=== PATIENT | male | born 1950 | race American Indian/Alaskan Native ===

== ENCOUNTER 2020-10-04 06:00 | Day surgery (SDC) | payer MEDICARE ==
[2020-10-04] MEDS: SODIUM CHLORIDE 0.9% 500 ML 500 ML IV SCH ×2 (07:51→08:55)
[2020-10-04] MEDS ORDERED: HEPARIN/NS 5000 UNIT/500ML 500 ML IR ONE ×2 (08:15→09:20)
[2020-10-04] MEDS ORDERED: HEPARIN 10,000 UNITS/10 ML VIAL ONE (08:15)
[2020-10-04] MEDS: fentaNYL 100 MCG/2 ML INJ ONE ×2 (08:51→08:59)
[2020-10-04] MEDS: MIDAZOLAM 2 MG/2 ML INJ ONE ×2 (08:51→08:59)
[2020-10-04] MEDS: LIDOCAINE (2%) 20 MG/1 ML VIAL 20 ML MDV INFILTRATI ONE ×2 (08:52→09:00)
[2020-10-04] MEDS ORDERED: SODIUM CHLORIDE 0.9% 0 ML ONE (09:17)
[2020-10-04] MEDS ORDERED: BIVALIRUDIN 250 MG INJ IV ONE (09:17)
--- NOTE | 2020-10-04 10:15 | Short Stay Summary ---
Short Stay Documentation Date of service: 10/04/20 - History H&P: obtained from office - Allergies and Medications Current Medications: Allergies No Known Allergies Allergy (Verified 10/04/20 07:02) Home Medications Medication Instructions Recorded Confirmed Last Taken Type Aspirin EC [Halfprin EC] 81 mg PO DAILY 10/04/20 10/04/20 10/03/20 History 81 mg Atorvastatin [Lipitor] 80 mg PO DAILY 10/04/20 10/04/20 10/03/20 History 80 mg Clopidogrel [Plavix] 75 mg PO DAILY 10/04/20 10/04/20 10/03/20 History 75 mg Ezetimibe [Zetia] 10 mg PO DAILY 10/04/20 10/04/20 10/03/20 History 10 mg amLODIPine 10 mg PO DAILY 10/04/20 10/04/20 10/03/20 History 10 mg carvediloL [Coreg] 12.5 mg PO BID 10/04/20 10/04/20 10/03/20 History 12.5mg Active Medications Sodium Chloride (Nacl 0.9% 500 Ml) 500 mls @ 50 mls/hr IV DIRECT YUNI Last Admin: 10/04/20 08:55 Dose: 50 mls/hr Documented by: - Physical exam Integumentary: other (clean, tegaderm in place, no bleeding or hematoma) - Brief post op/procedure progress note Pre-op diagnosis: claudication Post-op diagnosis: same Anesthesia: local Estimated blood loss: minimal - Disposition Condition at discharge: Good Disposition: DC-01 TO HOME OR SELFCARE - Discharge Diagnoses (1) Claudication Status: Acute Short Stay Discharge Plan Activity: advance as tolerated Diet: low fat, low cholesterol, low salt Wound: keep clean and dry, per your surgeon's advice Follow up with: PRIMARY CARE, [Primary Care Provider] - 7 Days CARLINE SAHA MD [Staff Physician] - 10/19/20 10:45 am (Follow up appointment with [facility], on 10/19/2020 at 10:30am at our [place] location. Phone )
--- NOTE | 2020-10-04 10:50 | Cardiac Catherization Report ---
DATE OF SERVICE: 10/04/2020 PROCEDURE: Peripheral angiogram. CLINICAL INFORMATION: A 70-year-old -[place] gentleman with claudication symptoms, has hypertension, hyperlipidemia, stopped smoking, had an ultrasound that showed distal right SFA disease and despite medical therapy, here for peripheral angiogram. Procedure was done with moderate sedation, started at 9:15, finished at 9:45, 30 minutes of moderate sedation. DESCRIPTION OF PROCEDURE: 1. Procedure was done via the left common femoral artery, sterile technique, local anesthesia, 5 -Belarusian groin sheath inserted. Pigtail catheter was placed in the distal peroneal, runoff was done, showed distal abdominal aorta patent, bilateral common iliacs patent, right internal and external iliac patent, left internal iliac proximal has a 50% lesion, internal has an ostial 60% lesion. Bilateral common femoral artery is patent. Left SFA proximally and distally is patent, popliteal patent with 2-vessel runoff with posterior tibial and peroneal, anterior tibial is 100%. 2. Left SFA proximal, mid, distal patent. Then, at the popliteal 100% with a genicular branch feeding into a peroneal branch with anterior tibial and posterior tibial both 100% and a distal peroneal branch becomes 100% with collateral feeding the anterior tibial. About 50-60 mm worth of occlusion noted with single vessel runoff. Next, pigtail was exchanged for for a RIM catheter using Advantage wire, placed the catheter down into the distal SFA, did angiogram with multiple angles, showed occlusion with genicular branch, flush occlusion, did not see a point of reentry proximally. Removed catheters over a guidewire and 5-Belarusian groin sheath was discontinued. Manual pressure held. No bleeding. SUMMARY OF FINDINGS: 1. Distal abdominal aorta patent, bilateral common iliacs patent, right internal and external iliac and ANIMATION CAMERA OPERATOR and profunda patent, left external iliac ostial 60%, left internal proximal 50% with ANIMATION CAMERA OPERATOR patent, left SFA patent with 2-vessel runoff with popliteal patent with peroneal and posterior tibial patent. 2. Right SFA proximal, mid, distal patent, but popliteal 100% with a genicular branch feeding a single vessel peroneal runoff. 3. The patient will be referred to Vascular Surgery for intervention for claudication symptoms. I discussed this with the patient and the patient's family in detail. TID: [id number] RECEIPT: [id number] KARON/BRIAN/ENRIQUE MTDD
[2020-10-04 13:36] VITALS: BP 160/76
== END 2020-10-04 14:34 | disposition home or self-care (01) ==
LOC: CATHLABREC 06:00
PROVIDERS: ATTEND Internal Medicine
DX: I73.89 Other specified peripheral vascular diseases (principal); I25.10 Atherosclerotic heart disease of native coronary artery without angina pectoris; I10 Essential (primary) hypertension; E78.49 Other hyperlipidemia; E78.00 Pure hypercholesterolemia, unspecified; Z87.891 Personal history of nicotine dependence; Z79.899 Other long term (current) drug therapy; Z98.890 Other specified postprocedural states
CPT/HCPCS: 36247; 75716; 99156; 99157; C1769; J1644; J2250; J3010; J7040; J0583; Q9967

== ENCOUNTER 2020-12-07 05:53 | Day surgery (SDC) | payer MEDICARE ==
[2020-12-07] MEDS ORDERED: SODIUM CHLORIDE 0.9% 500 ML 500 ML IV SCH (07:00)
[2020-12-07 07:16] LABS: Basophils % (Auto) 0.7 % (0.0-1.8); Eosinophils # (Auto) 0.2 K/mm3 (0.0-0.4); Eosinophils % (Auto) 3.6 % (0.0-4.3); Hematocrit 39.4 % (35.5-45.6); Hemoglobin 13.1 gm/dl (11.8-15.2); Lymphocytes # (Auto) 1.6 K/mm3 (1.2-5.4); Lymphocytes % (Auto) 23.9 % (13.4-35.0); Mean Corpuscular HGB Conc 33 % (32-34); Mean Corpuscular Volume 87 fl (84-94); Monocytes # (Auto) 0.6 K/mm3 (0.0-0.8); Monocytes % (Auto) 9.5 % (0.0-7.3); Platelet Count 215 K/mm3 (140-440); Red Blood Count 4.53 M/mm3 (3.65-5.03); Red Cell Distribution Width 14.8 % (13.2-15.2)
[2020-12-07 07:26] LABS: INR 1.1 (0.87-1.13)
[2020-12-07 07:28] LABS: BUN/Creatinine Ratio 13; Blood Urea Nitrogen 14 mg/dL (9-20); Calcium 8.9 mg/dL (8.4-10.2); Hemolysis Index 5
[2020-12-07] MEDS ORDERED: HEPARIN/NS 5000 UNIT/500ML 1,000 ML IR ONE (08:21)
[2020-12-07] MEDS ORDERED: HEPARIN 10,000 UNITS/10 ML VIAL ONE (08:21)
[2020-12-07] MEDS ORDERED: LIDOCAINE (2%) 20 MG/1 ML VIAL 20 ML MDV INFILTRATI ONE (08:21)
[2020-12-07] MEDS ORDERED: VERAPAMIL 5 MG/2 ML INJ ONE (08:21)
[2020-12-07] MEDS ORDERED: NITROGLYCERIN SYRINGE 3 ML ONE (08:23)
[2020-12-07] MEDS ORDERED: MIDAZOLAM 2 MG/2 ML INJ ONE (08:26)
[2020-12-07] MEDS ORDERED: fentaNYL 100 MCG/2 ML INJ ONE (08:26)
[2020-12-07] MEDS ORDERED: ceFAZolin/Water 2 GM/20 ML 2 GM/20 ML SYRINGE IV ONE (08:41)
[2020-12-07] MEDS ORDERED: ceFAZolin/STERILE WATER 2 GM/20 ML SYRINGE IV ONE (08:42)
[2020-12-07] MEDS ORDERED: MIDAZOLAM 2 MG/2 ML INJ IV ONE ×2 (09:01→09:51)
[2020-12-07] MEDS ORDERED: HEPARIN 10,000 UNITS/10 ML VIAL IV ONE (09:50)
[2020-12-07] MEDS ORDERED: fentaNYL 100 MCG/2 ML INJ IV ONE (09:51)
--- NOTE | 2020-12-07 11:25 | Short Stay Summary ---
Short Stay Documentation Date of service: 12/07/20 - History Principal diagnosis: Right PVD with rest pain H&P: obtained from office - Allergies and Medications Current Medications: Allergies No Known Allergies Allergy (Verified 10/04/20 07:02) Home Medications Medication Instructions Recorded Confirmed Last Taken Type Aspirin EC [Halfprin EC] 81 mg PO DAILY 10/04/20 12/07/20 12/07/20 06:00 History 81 MG Atorvastatin [Lipitor] 80 mg PO DAILY 10/04/20 12/07/20 12/07/20 06:00 History 80 MG Clopidogrel [Plavix] 75 mg PO DAILY 10/04/20 12/07/20 12/07/20 06:00 History 75 MG Ezetimibe [Zetia] 10 mg PO DAILY 10/04/20 12/07/20 12/07/20 06:00 History 10 MG amLODIPine 10 mg PO DAILY 10/04/20 12/07/20 12/07/20 06:00 History carvediloL [Coreg] 12.5 mg PO BID 10/04/20 12/07/20 12/07/20 06:00 History 2 TABS Active Medications Sodium Chloride (Nacl 0.9% 500 Ml) 500 mls @ 50 mls/hr IV DIRECT YUNI Last Admin: 12/07/20 08:23 Dose: 50 mls/hr Documented by: - Brief post op/procedure progress note Date of procedure: 12/07/20 Pre-op diagnosis: Right PVD with rest pain Post-op diagnosis: same Procedure: Revascularization right leg Anesthesia: local Surgeon: OMAR LOPES Estimated blood loss: minimal Pathology: none Condition: stable - Disposition Condition at discharge: Good Disposition: 01 HOME / SELF CARE / HOMELESS Short Stay Discharge Plan Activity: advance as tolerated Weight Bearing Status: Weight Bear as Tolerated Diet: regular Wound: keep clean and dry, per your surgeon's advice Additional Instructions: Leave dressings in place until bedtime tonight then replace with Band-Aid You will be started on Eliquis 5 mg twice a day and 50 mg of Pletal twice a day. You will discontinue Plavix and aspirin. Follow up with: GIOVANNY BOOKER MD [Primary Care Provider] - 7 Days
[2020-12-07] MEDS ORDERED: APIXABAN 5 MG TAB ONE (11:28)
[2020-12-07 13:27] VITALS: BP 132/81
--- NOTE | 2020-12-11 14:46 | Operative Report ---
Operative Report Operative Report: Exam: Right lower extremity revascularization Clinical indication: Patient with a history of peripheral vascular disease with rest pain Date: 12/07/2020 Procedure: Following an explanation of the risks, benefits and alternatives; written informed consent was obtained. The patient was brought to the angiogr aphy suite and placed in supine position on the examination table. Initial ultrasound evaluation of the left groin demonstrated a patent left common femoral artery. Initial evaluation of the patient's right foot demonstrated a patent posterior tibial artery. The patient's left groin and right foot were prepped and draped in the usual sterile fashion. 1% lidocaine was used for anesthesia. Under ultrasound guidance, the right posterior tibial artery was cannulated with a 3-1/2 cm 21-gauge needle. A 0.018 guidewire was advanced proximally. The needle was removed and the inner portion of the micropuncture sheath advanced over the guidewire. Contrast was injected to demonstrate arterial positioning. A V 18 guidewire was then advanced through the sheath to the proximal posterior tibial artery. Under ultrasound guidance, left common femoral artery was cannulated with a 7 cm 21-gauge needle. A 0.018 guidewire was advanced centrally. The needle was removed and the micro sheath placed. The 0.018 guidewire was exchanged for a 0.035 guidewire and the micro sheath exchanged for a 5 Turkish vascular sheath. An Omni Flush catheter was advanced over the guidewire together the guidewire and catheter advanced to the distal abdominal aorta. Contrast was injected for anatomic localization. The distal abdominal aorta, bilateral common iliac, bilateral external iliac and bilateral common femoral arteries are patent with scattered atherosclerotic disease. The bifurcation was crossed with the Omni Flush catheter and guidewire. Together the guidewire and catheter advanced to the proximal SFA. Contrast was injected and imaging obtained to the SFA. This demonstrates that the proximal and mid SFA are patent. The distal SFA and popliteal artery are occluded with reconstitution of the posterior tibial artery 4 to 6 cm distal to its origin. From the pedal approach on the right, a trailblazer catheter was advanced over the guidewire. To get the guidewire and trailblazer catheter were advanced through the occluded posterior tibial artery, popliteal artery into the distal SFA. From the antegrade approach, the Omni Flush catheter was exchanged for a vertebral catheter and the vertebral catheter and 0.035 guidewire advanced to just proximal to the area of occlusion. Contrast was injected. This demonstrates the presence of a large lateral collateral vessel with reconsti tution of the posterior tibial artery 4 to 6 cm distal to its origin. The vertebral catheter and guidewire were then advanced through the proximal occluded popliteal artery into the region of the previously placed probe laser catheter from below. Attempts to extend from the subintimal plane in the lower catheter into the true luminal plane in the distal SFA resulted in multiple fenestrations in a dissection flap. Contrast injected from below demonstrated brisk flow from the distal SFA into the posterior tibial artery. A decision was made to perform angioplasty. Angioplasty was performed from the distal SFA, popliteal artery and proximal tibioperoneal trunk into the posterior tibial artery. Angioplasty was performed using a 4 mm x 150 mm balloon insufflated nominal atmospheres for 1 minute. Post angioplasty imaging demonstrated brisk flow from the SFA to the posterior tibial artery. There is significant irregularity within the popliteal artery secondary to irregularity of the vessel. The posterior tibial artery is now dilated to 5 mm in diameter. Imaging obtained out of the foot demonstrate intact pedal flow. At this point, the catheters, guidewires and sheaths were removed. Hemostasis was achieved in the left common femoral artery using an Angio-Seal arterial closure device and pressure dressing. Hemostasis was achieved in the left posterior tibial artery using manual compression and pressure dressing. The patient tolerated the procedure well. There were no immediate postprocedural complications. Conscious sedation was performed under the guidance of radiologic nursing. Continuous cardiopulmonary monitoring was utilized. Impression:1) Revascularization of the left leg from a left common femoral artery approach and right posterior tibial artery approach. Revascularization was performed using angioplasty of the distal SFA, popliteal artery, tibioperoneal trunk and proximal posterior tibial artery with significantly increased blood flow and dilation of the posterior tibial artery. A palpable plus pulse was present at the conclusion of the procedure.
== END 2020-12-07 13:05 | disposition home or self-care (01) ==
LOC: CATHLABREC 05:53
PROVIDERS: ATTEND Radiology Diagnostic Radiology
DX: I70.221 Atherosclerosis of native arteries of extremities with rest pain, right leg (principal); I70.213 Atherosclerosis of native arteries of extremities with intermittent claudication, bilateral legs; I10 Essential (primary) hypertension; I25.10 Atherosclerotic heart disease of native coronary artery without angina pectoris; I25.2 Old myocardial infarction; E78.5 Hyperlipidemia, unspecified; Z79.82 Long term (current) use of aspirin; Z79.899 Other long term (current) drug therapy; Z98.890 Other specified postprocedural states
CPT/HCPCS: 36415; 37224; 37228; 80048; 85025; 85610; 85730; 99156; 99157; C1725; C1751; C1760; C1769; C1887; C1894; J0690; J1644; J2250; J3010; J7040; Q9967

== ENCOUNTER 2021-03-02 17:37 | Emergency (ER) | payer MEDICARE ==
[2021-03-02] MEDS ORDERED: ONDANSETRON 4 MG/2 ML INJ IV ONE ×2 (20:49→21:45)
[2021-03-02] MEDS ORDERED: SODIUM CHLORIDE 0.9% 1000 ML 1,000 ML IV ONE (20:49)
[2021-03-02 21:44] LABS: Basophils % (Auto) 0.6 % (0.0-1.8); Eosinophils # (Auto) 0.1 K/mm3 (0.0-0.4); Eosinophils % (Auto) 1.4 % (0.0-4.3); Hematocrit 42.6 % (35.5-45.6); Lymphocytes # (Auto) 1.8 K/mm3 (1.2-5.4); Lymphocytes % (Auto) 23.9 % (13.4-35.0); Mean Corpuscular HGB Conc 33 % (32-34); Mean Corpuscular Volume 87 fl (84-94); Monocytes # (Auto) 0.8 K/mm3 (0.0-0.8); Monocytes % (Auto) 10.6 % (0.0-7.3); Platelet Count 208 K/mm3 (140-440); Red Blood Count 4.92 M/mm3 (3.65-5.03); Red Cell Distribution Width 14.7 % (13.2-15.2)
[2021-03-02] MEDS ORDERED: KETOROLAC 30 MG/1 ML INJ IV ONE (21:45)
[2021-03-02 22:07] LABS: Alanine Aminotransferase 22 units/L (7-56); Albumin 4.4 g/dL (3.9-5); BUN/Creatinine Ratio 9; Blood Urea Nitrogen 8 mg/dL (9-20); Calcium 8.9 mg/dL (8.4-10.2); Hemolysis Index 75
--- NOTE | 2021-03-02 22:45 | Emergency Department Report ---
ED General Adult HPI - General Chief complaint: Nausea/Vomiting/Diarrhea Stated complaint: NOT FEELING WELL Time Seen by Provider: 03/02/21 21:44 Source: patient Mode of arrival: Ambulatory Limitations: No Limitations - History of Present Illness Initial comments: nausea and vomiting , recent dx ith covid , no fever no sob or kait, just nausea and vomiting -: Gradual, days(s) Radiation: abdomen Severity scale (0 -10): 1 Quality: aching Consistency: intermittent Worsens with: none Treatments Prior to Arrival: none - Related Data Home Medications Medication Instructions Recorded Confirmed Last Taken Aspirin EC [Halfprin EC] 81 mg PO DAILY 10/04/20 12/07/20 12/07/20 06:00 81 MG Atorvastatin [Lipitor] 80 mg PO DAILY 10/04/20 12/07/20 12/07/20 06:00 80 MG Clopidogrel [Plavix] 75 mg PO DAILY 10/04/20 12/07/20 12/07/20 06:00 75 MG Ezetimibe [Zetia] 10 mg PO DAILY 10/04/20 12/07/20 12/07/20 06:00 10 MG amLODIPine 10 mg PO DAILY 10/04/20 12/07/20 12/07/20 06:00 carvediloL [Coreg] 12.5 mg PO BID 10/04/20 12/07/20 12/07/20 06:00 2 TABS Previous Rx's Medication Instructions Recorded Last Taken Type Apixaban [Eliquis] 5 mg PO BID #60 tablet 12/07/20 Unknown Rx cilostazoL [Pletal] 50 mg PO BID #60 tablet 12/07/20 Unknown Rx oxyCODONE /ACETAMINOPHEN [Percocet 1 tab PO Q6HR PRN #25 tablet 12/07/20 Unknown Rx 5/325] Ondansetron [Zofran Odt] 4 mg PO Q8HR #14 tab.rapdis 03/02/21 Unknown Rx Allergies Allergy/AdvReac Type Severity Reaction Status Date / Time No Known Allergies Allergy Verified 10/04/20 07:02 ED Review of Systems ROS: Stated complaint: NOT FEELING WELL Other details as noted in HPI Constitutional: denies: chills, fever Eyes: denies: eye pain, eye discharge, vision change ENT: denies: ear pain, throat pain Respiratory: denies: cough, shortness of breath, wheezing Cardiovascular: denies: chest pain, palpitations Endocrine: no symptoms reported Gastrointestinal: denies: abdominal pain, nausea, diarrhea Genitourinary: denies: urgency, dysuria Musculoskeletal: denies: back pain, joint swelling, arthralgia Skin: denies: rash, lesions Neurological: denies: headache, weakness, paresthesias Psychiatric: denies: anxiety, depression Hematological/Lymphatic: denies: easy bleeding, easy bruising ED Past Medical Hx - Past Medical History Previous Medical History?: Yes Hx Hypertension: Yes Hx Heart Attack/AMI: Yes (2019) - Surgical History Past Surgical History?: Yes Hx Coronary Stent: Yes (6) - Social History Smoking Status: Former Smoker - Medications Home Medications: Home Medications Medication Instructions Recorded Confirmed Last Taken Type Aspirin EC [Halfprin EC] 81 mg PO DAILY 10/04/20 12/07/20 12/07/20 06:00 History 81 MG Atorvastatin [Lipitor] 80 mg PO DAILY 10/04/20 12/07/20 12/07/20 06:00 History 80 MG Clopidogrel [Plavix] 75 mg PO DAILY 10/04/20 12/07/20 12/07/20 06:00 History 75 MG Ezetimibe [Zetia] 10 mg PO DAILY 10/04/20 12/07/20 12/07/20 06:00 History 10 MG amLODIPine 10 mg PO DAILY 10/04/20 12/07/20 12/07/20 06:00 History carvediloL [Coreg] 12.5 mg PO BID 10/04/20 12/07/20 12/07/20 06:00 History 2 TABS Apixaban [Eliquis] 5 mg PO BID #60 tablet 12/07/20 Unknown Rx cilostazoL [Pletal] 50 mg PO BID #60 tablet 12/07/20 Unknown Rx oxyCODONE /ACETAMINOPHEN [Percocet 1 tab PO Q6HR PRN #25 tablet 12/07/20 Unknown Rx 5/325] Ondansetron [Zofran Odt] 4 mg PO Q8HR #14 tab.rapdis 03/02/21 Unknown Rx ED Physical Exam - General Limitations: No Limitations General appearance: alert, in no apparent distress - Head Head exam: Present: atraumatic, normocephalic - Eye Eye exam: Present: normal appearance - ENT ENT exam: Present: mucous membranes moist - Neck Neck exam: Present: normal inspection - Respiratory Respiratory exam: Present: normal lung sounds bilaterally. Absent: respiratory distress - Cardiovascular Cardiovascular Exam: Present: regular rate, normal rhythm. Absent: systolic murmur, diastolic murmur, rubs, gallop - GI/Abdominal GI/Abdominal exam: Present: soft, normal bowel sounds - Rectal Rectal exam: Present: deferred - Extremities Exam Extremities exam: Present: normal inspection - Back Exam Back exam: Present: normal inspection - Neurological Exam Neurological exam: Present: alert, oriented X3 - Psychiatric Psychiatric exam: Present: normal affect, normal mood - Skin Skin exam: Present: warm, dry, intact, normal color. Absent: rash ED Course Vital Signs 03/02/21 19:16 Temperature 98.6 F Pulse Rate 62 Respiratory 18 Rate Blood Pressure 145/84 O2 Sat by Pulse 99 Oximetry - Reevaluation(s) Reevaluation #1: 03/02/21 22:44 work up negative , fluid given nausea meds, vss no distress ED Medical Decision Making - Lab Data Result diagrams: 03/02/21 21:14 03/02/21 21:14 Critical care attestation.: If time is entered above; I have spent that time in minutes in the direct care of this critically ill patient, excluding procedure time. ED Disposition Clinical Impression: COVID-19 virus infection, Acute gastroenteritis Disposition: HOME / SELF CARE / HOMELESS Is pt being admited?: No Does the pt Need Aspirin: No Condition: Stable Instructions: Viral Gastroenteritis, Adult, [id number] Referrals: MARIN BOOKER MD [Primary Care Provider] - 3-5 Days
[2021-03-02 23:07] VITALS: BP 151/88
== END 2021-03-02 23:00 | disposition home or self-care (01) ==
LOC: ED 17:37
DX: U07.1 COVID-19 (principal); K52.9 Noninfective gastroenteritis and colitis, unspecified; I10 Essential (primary) hypertension; Z87.891 Personal history of nicotine dependence; Z79.01 Long term (current) use of anticoagulants; Z79.899 Other long term (current) drug therapy
CPT/HCPCS: 36415; 80053; 83690; 83735; 85025; 96361; 96374; 96375; 96376; 99283; J1885; J2405; J7030; Q0162